=== PATIENT | female | born 1940 | race Hispanic/Latino ===

== ENCOUNTER 2023-12-26 15:50 | Emergency (ER) | payer MEDICARE ==
[2023-12-26 17:01] LABS: Specific Gravity 1.016 (1.005-1.030); Sqamous Epithelial <5 /HPF (None Seen); Urine Bacteria <20 /HPF (<20); Urine Bilirubin NEGATIVE (Negative); Urine Blood 1+ (Negative); Urine Clarity Extremely Turbid (Clear); Urine Color Yellow (Yellow); Urine Culture Reflex Order REFLEXED; Urine Glucose NEGATIVE (Negative); Urine Ketones NEGATIVE (Negative); Urine Micro Reflex YN NO BILL MICROSCOPIC; Urine Nitrite NEGATIVE (Negative); Urine Protein TRACE (Negative); Urine RBC 21-50 /HPF (None Seen); Urine Urobilinogen Normal (Normal); Urine WBC >50 /HPF (<5)
--- NOTE | 2023-12-26 17:23 | EDPHYS ---
Physician Documentation [facility] Name: Monika Shaw Age: 83 yrs Sex: Female : 1940 Arrival Date: 12/26/2023 Time: 15:50 Bed 12 Private MD: ED Physician Long Garrison HPI: 12/25 16:10 This 83 yrs old Female presents to ER via Ambulatory with complaints of Urinary Problem.sp3 16:10 83-year-old female with no past medical history presents with dysuria and urinary sp3 frequency for 2 days. She denies any back pain, abdominal pain, fever, chest pain, shortness of breath, is not sexually active and denies any other signs or symptoms on ROS at this time.. 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 - Infectious Disease History:: Denies. - Social history:: Smoking status: Patient denies any tobacco usage or history of. ROS: 16:11 Constitutional: Negative for fever, chills, and weight loss, Eyes: Negative for injury, sp3 pain, redness, and discharge, Neck: Negative for injury, pain, and swelling, Cardiovascular: Negative for chest pain, palpitations, and edema, Respiratory: Negative for shortness of breath, cough, wheezing, and pleuritic chest pain, Abdomen/GI: Negative for abdominal pain, nausea, vomiting, diarrhea, and constipation, Back: Negative for injury and pain, MS/Extremity: Negative for injury and deformity, Skin: Negative for injury, rash, and discoloration, Neuro: Negative for headache, weakness, numbness, tingling, and seizure, Psych: Negative for depression, anxiety, suicide ideation, homicidal ideation, and hallucinations, Allergy/Immunology: Negative for hives, rash, and allergies, Endocrine: Negative for neck swelling, polydipsia, polyuria, polyphagia, and marked weight changes, 16:11 All other systems are negative, Exam: 16:11 Constitutional: This is a well developed, well nourished patient who is awake, alert, sp3 and in no acute distress. Head/Face: Normocephalic, atraumatic. Chest/axilla: Normal chest wall appearance and motion. Nontender with no deformity. No lesions are appreciated. Cardiovascular: Regular rate and rhythm with a normal S1 and S2. No gallops, murmurs, or rubs. Normal PMI, no JVD. No pulse deficits. Respiratory: Lungs have equal breath sounds bilaterally, clear to auscultation and percussion. No rales, rhonchi or wheezes noted. No increased work of breathing, no retractions or nasal flaring. Abdomen/GI: Soft, non-tender, with normal bowel sounds. No distension or tympany. No guarding or rebound. No evidence of tenderness throughout. Back: No spinal tenderness. No costovertebral tenderness. Full range of motion. Skin: Warm, dry with normal turgor. Normal color with no rashes, no lesions, and no evidence of cellulitis. MS/ Extremity: Pulses equal, no cyanosis. Neurovascular intact. Full, normal range of motion. Neuro: Awake and alert, GCS 15, oriented to person, place, time, and situation. Cranial nerves II-XII grossly intact. Motor strength 5/5 in all extremities. Sensory grossly intact. Cerebellar exam normal. Normal gait. Psych: Awake, alert, with orientation to person, place and time. Behavior, mood, and affect are within normal limits. Vital Signs: 15:55 BP 167 / 94; Pulse 76; Resp 16; Temp 98; Pulse Ox 99% ; ko1 MDM: 16:03 Patient medically screened. sp3 16:11 Data reviewed: vital signs, nurses notes. ED course: 5/Pulse 83-year-old female with sp3 dysuria and urinary frequency. Differential diagnosis includes UTI/pyelonephritis spectrum versus nonspecific urethritis.. 17:22 ED course: UA with clear infection. Will place patient on Bactrim p.o. and have her sp3 follow-up with PCP.. 12/25 16:04 Order name: UAJanuary; Complete Time: 17:21 sp3 12/25 17:04 Order name: Urine Culture EDMS Administered Medications: No medications were administered Disposition Summary: 12/26/23 17:22 Discharge Ordered Notes: Location: Home sp3 Condition: Stable sp3 Diagnosis - Urinary tract infection sp3 Followup: sp3 - With: Private Physician - When: Upon discharge from the Emergency Department - Reason: Continuance of care Discharge Instructions: - Discharge Summary Sheet sp3 - Urinary Tract Infection, Adult sp3 Forms: - Medication Reconciliation Form sp3 - Antibiotic Education sp3 - Prescription Opioid Use sp3 - Patient Portal Instructions sp3 - Leadership Thank You Letter sp3 Prescriptions: - Bactrim DS 800-160 mg Oral Tablet - take 1 tablet ORAL route every 12 hours for 7 days; 14 tablet; Refills: 0, sp3 Product Selection Permitted Signatures: Dispatcher [employer] EDLong Rob MD MD sp3 Josiane Gutiérrez RN RN ko1
--- NOTE | 2023-12-26 17:23 | ER ---
Nurse's Notes [facility] Name: Monika Shaw Age: 83 yrs Sex: Female : 1940 Arrival Date: 12/26/2023 Time: 15:50 Bed 12 Private MD: Diagnosis: Urinary tract infection Presentation: 12/25 15:55 Chief complaint: Patient states: having urgency when urinating. Coronavirus screen: At ko1 this time, the client does not indicate any symptoms associated with coronavirus-19. Ebola Screen: No symptoms or risks identified at this time. Initial Sepsis Screen: Does the patient meet any 2 criteria? No. Patient's initial sepsis screen is negative. Does the patient have a suspected source of infection? No. Patient's initial sepsis screen is negative. Risk Assessment: Do you want to hurt yourself or someone else? Patient reports no desire to harm self or others. Onset of symptoms is unknown. 15:55 Method Of Arrival: Ambulatory ko1 15:55 Acuity: JENNYFER 3 ko1 Triage Assessment: 15:59 General: Appears in no apparent distress. Behavior is calm, cooperative, appropriate ko1 for age. Pain: Denies pain. 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 - Infectious Disease History:: Denies. - Social history:: Smoking status: Patient denies any tobacco usage or history of. Screenin:33 [facility] ED Fall Risk Assessment (Adult) History of falling in the last 3 months, ap3 including since admission No falls in past 3 months (0 pts) Confusion or Disorientation No (0 pts) Intoxicated or Sedated No (0 pts) Impaired Gait No (0 pts) Mobility Assist Device Used No (0 pt) Altered Elimination No (0 pt) Score/Fall Risk Level 0 - 2 = Low Risk Oriented to surroundings, Maintained a safe environment, Educated pt \T\ family on fall prevention, incl call for assistance when getting out of bed, Assessed \T\ reinforced patient's understanding of fall precautions, Provided non-skid footwear, Hourly rounding (assess needs \T\ fall precautionary measures) done, Used ambulatory aids as needed (educated on \T\ assisted with), Used gait belt as appropriate. Abuse screen: Denies threats or abuse. Nutritional screening: No deficits noted. Tuberculosis screening: No symptoms or risk factors identified. Vital Signs: 15:55 BP 167 / 94; Pulse 76; Resp 16; Temp 98; Pulse Ox 99% ; ko1 ED Course: 15:51 Patient arrived in ED. rg4 15:58 Long Garrison MD is Attending Physician. sp3 15:59 Triage completed. ko1 15:59 Arm band placed on right wrist. Patient placed in waiting room, Patient notified of ko1 wait time. 16:46 Josiane Gutiérrez, RN is Primary Nurse. ko1 16:46 [facility] Sent. ko1 17:34 Patient has correct armband on for positive identification. Call light in reach. Side ap3 rails up X 1. Adult w/ patient. Provided Education on: fall risk education. 17:34 No provider procedures requiring assistance completed. Patient did not have IV access ap3 during this emergency room visit. intact, bleeding controlled, No redness/swelling at site. Pressure dressing applied. Administered Medications: No medications were administered Medication: 17:34 VIS not applicable for this client. ap3 Outcome: 17:22 Discharge ordered by . sp3 17:34 Discharged to home ambulatory, with family, ap3 17:34 Condition: good 17:34 Discharge instructions given to patient, Instructed on discharge instructions, follow up and referral plans. medication usage, Demonstrated understanding of instructions, follow-up care, medications, Prescriptions given X 1, 17:35 Patient left the ED. ap3 Signatures: Danica Rubio rg4 Leila Payne RN RN ap3 Long Garrison MD MD sp3 Josiane Gutiérrez, RN RN ko1
== END 2023-12-26 17:35 | disposition home or self-care (01) ==
LOC: ER 15:50
DX: N39.0 Urinary tract infection, site not specified (principal)
CPT/HCPCS: 81001; 87086; 87088